=== PATIENT | female | born 1965 | race Two or more races ===

== ENCOUNTER → 2023-07-21 | Outpatient (CLI) | LOC: M SOG 08:00 | PROVIDERS: ATTEND Orthopaedic Surgery | DX: M25.561 Pain in right knee (principal) ==

== ENCOUNTER → 2023-07-31 | Outpatient (CLI) | payer OTHER | LOC: M PLAIMG 06:44 | PROVIDERS: ATTEND Orthopaedic Surgery | DX: M25.561 Pain in right knee (principal) ==